=== PATIENT | female | born 1995 | race Caucasian/White ===

== ENCOUNTER 2017-12-02 13:50 | Observation (INO) | payer MEDICAID, OTHER ==
[~2017-12-02] VITALS: Ht 152.4 cm; Wt 63.5 kg
[2017-12-02 14:45] LABS: BASOPHILS # (AUTO) 0.03 x10^3/uL (0-0.1); BASOPHILS % (AUTO) 0 % (0-1); EOSINOPHILS # (AUTO) 0.17 x10^3/uL (0-0.4); EOSINOPHILS % (AUTO) 2 % (1-7); LYMPHOCYTES # (AUTO) 1.97 x10^3/uL (1-3.4); LYMPHOCYTES % (AUTO) 22 % (22-44); MD NO; MEAN CORPUSCULAR HEMOGLOBIN 29.5 pg (27.0-34.8); MEAN CORPUSCULAR VOLUME 86.9 fL (80-100); MONOCYTES # (AUTO) 0.48 x10^3/uL (0.2-0.8); MONOCYTES % (AUTO) 5 % (2-9); NEUTROPHILS # (AUTO) 6.28 x10^3/uL (1.8-6.8); NEUTROPHILS % (AUTO) 70 % (42-75); PLATELET COUNT 351 x10^3/uL (130-400); RED BLOOD COUNT 5.24 x10^6/uL (3.82-5.3); RED CELL DISTRIBUTION WIDTH 13.2 % (9.6-15.2)
[2017-12-02 14:52] LABS: ALBUMIN 4.6 g/dL (3.4-5.0); ANION GAP 10 mmol/L (5-15); CALCIUM 9.1 mg/dL (8.5-10.1); CHLORIDE 104 mmol/L (98-107); CREATININE 0.86 mg/dL (0.55-1.02)
[2017-12-02 14:53] LABS: ACETAMINOPHEN < 2 mcg/mL (10-30); SALICYLATE LEVEL < 1.7 mg/dL (2.8-20.0)
[2017-12-02 15:01] LABS: HCG UR SG 1.029 (1.003-1.030)
[2017-12-02 15:05] LABS: AMPHETAMINE SCREEN, URINE Negative (Negative); BARBITURATE SCREEN, URINE Negative (Negative); BENZODIAZEPINE SCREEN, URINE Negative (Negative); CANNABINOID SCREEN, URINE Negative (Negative); COCAINE SCREEN, URINE Negative (Negative); METHADONE SCREEN, URINE Negative (Negative); OPIATE SCREEN, URINE Negative (Negative)
[2017-12-02] MEDS ORDERED: ACETAMINOPHEN 325 MG TABLET PO PRN (19:00)
[2017-12-02] MEDS ORDERED: TEMAZEPAM 15 MG CAPSULE PO PRN (19:00)
[2017-12-02] MEDS ORDERED: LORazepam 1MG TABLET PO PRN (19:00)
[2017-12-02] MEDS: FLUOXETINE HCL 20 MG CAPSULE PO SCH (20:13)
[2017-12-02] MEDS: OLANZAPINE 2.5 MG TABLET PO SCH (20:13)
[2017-12-02 20:47] VITALS: BP 131/78
[2017-12-03 07:00] VITALS: BP 121/78
[2017-12-03 20:00] VITALS: BP 111/75
[2017-12-03] MEDS: FLUOXETINE HCL 20 MG CAPSULE PO SCH (20:41)
[2017-12-03] MEDS: OLANZAPINE 2.5 MG TABLET PO SCH (20:42)
[2017-12-04 07:30] VITALS: BP 112/69
[2017-12-04] MEDS ORDERED: SODIUM CHLORIDE NASAL SPRAY 45ML BOTTLE NAS PRN (10:30)
[2017-12-04 20:00] VITALS: BP 107/67
[2017-12-04] MEDS: FLUOXETINE HCL 20 MG CAPSULE PO SCH (20:38)
[2017-12-04] MEDS: OLANZAPINE 2.5 MG TABLET PO SCH (20:39)
[2017-12-05 08:18] VITALS: BP 119/77
[2017-12-05 19:53] VITALS: BP 132/90
== END 2017-12-05 20:08 ==
LOC: ED 15:00 → SUATTDRO 18:39 → EDIP 18:40 → 2N 20:44
PROVIDERS: ADMIT Hospitalist; ATTEND Hospitalist
DX: R45.851 Suicidal ideations (principal); F32.9 Major depressive disorder, single episode, unspecified; Z91.14 Patient's other noncompliance with medication regimen
CPT/HCPCS: 36415; 80048; 80307; 80329; 81025; 82040; 85025; 99285; G0378; G0480